=== PATIENT | female | born 1970 | race African-American/Black ===

== ENCOUNTER 2016-11-30 15:36 | Emergency (ER) | payer BC, OTHER ==
[2016-11-30] MEDS ORDERED: LORAZEPAM 2 MG/ML VIAL IV ONE (15:57)
[2016-11-30] MEDS ORDERED: NS 1,000 ML IV ONE ×2 (15:57→17:48)
[2016-11-30 16:01] VITALS: TEMP 98.6; BMI 43.1
[2016-11-30 16:05] LABS: MPV 9.6 fL (7.4-10.4)
--- NOTE | 2016-11-30 16:06 | EDPRACDOC ---
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 SHE SAW HER PCP TODAY AND TOLD HER THAT SHE HAD CP. SHE HAS ALSO NOTICED BLACK STOOL A FEW TIMES. PT SAID THAT SHE HAS NOT TAKEN HER MEDS TODAY. Chest Pain Location: Reports: No Pain Pain Radiation: Reports: None Symptoms Occur: Reports: Gradually Cardiac Risk Factors: Reports: Hypertension, Diabetes Cardiac History of: Reports: None PE Risk Factors: Reports: None Medications within 24 Hours: Reports: None Prehospital Care: Reports: None Pain Came On: Reports: Suddenly Pain Status: Present Now Pain Description: Reports: Sharp Pain Severity: Mild Pain Worsens With: Reports: Nothing Associated Signs and Symptoms: Reports: SOB ED Past Medical History - Patient Medical History Cardiac History: Reports: Hypertension Respiratory History: Reports: Asthma GI/ History: Reports: Gastroesophageal Reflux Musculoskeletal History: Reports: Arthritis Psychological History: Reports: Depression (LONG TIME AGO), Anxiety. Denies: Substance Use Disorder Systemic History: Reports: Cancer (cervical cancer), Anemia, Diabetes Additional Past Medical History: CHRONIC HEADACHES. DUB Surgical History: Reports: Hysterectomy, Other (Ectopic ) - Family Medical History Reports: Hypertension (mother and father), Diabetes (mother), Cancer ( grandparents BREAST CA, PROSTATE CA), Cardiac Disorders (mother and father). Denies: Stroke - Social Medical History Smoking Status: Never smoker Social History: Denies: Cocaine Use, Heroin Use, Marijuana Use, Substance Use Disorder ETOH: None Substance Abuse: None Lives In: Home EDM Review of Systems - Review of Systems ROS Negative Except as Marked: Yes All systems reviewed and were negative except as marked Cardiovascular: Chest Pain, Other (NEAR SYNCOPE) Gastrointestinal: Other (BLACK STOOL) - Physical Exam Constitutional: Alert (Awake), Distress (VERY ANXIOUS) Oriented to: Time, Person, Place Last recorded Vital Signs: Last Vital Signs Temp 98.6 F 11/30/16 15:40 Pulse 100 11/30/16 15:40 Resp 22 11/30/16 15:40 BP 190/95 H 11/30/16 15:40 Pulse Ox 100 11/30/16 15:40 Oxygen Pulse Oxygen Saturation 100 O2 Device Room Air Oxygen Flow Rate Fraction of Inspired Oxygen ( FIO2) - HEENT Head: Normal ( normocephalic) Eye Exam: Normal (PERRL, EOMI, Sclera white) Oropharynx: Normal (Pharynx:Moist without exudate,Gums-no swelling) ENT EAC: Normal TMJ: Normal Nose: No Symptoms Reported (septum midline) Neck: Normal (FROM, trachea at midline) - Respiratory/Cardiovascular Respiratory: Tachypnea Cardiovascular: Tachycardia - GI Auscultation: Normal (NABS) Palpation: Normal (Soft,No rebound or guarding, non distended) Tenderness: Non tender Uribe's Sign: Negative - Musculoskeletal Back: Normal (Non-Tender) Extremities: Normal (Normal tone, Pulses 2+ No cyanosis or edema, FROM) - Integumentary Skin: Normal, Warm, Dry Lymphatics: Normal (no adenopathy) - Neurologic Memory Impaired: Normal Motor Function: Normal (Normal tone, Pulses 2+ No cyanosis or edema, FROM) Cranial Nerve: Normal (CN II-X11 intact sensation, strength 5/5) Cerebellar: Normal Mood Description: Anxious Perception: Normal - Action ASA given in the ED: No Aspirin therapy held due to: Other-specify below* (asa and ntg given by pcp 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 No acute intra thoracic abnormalities. Fatty infiltration of liver. - Additional Information pt does not have rx for her meds - Departure Yes I personally saw and evaluated the patient. Disposition: Home Condition: Fair Final Diagnosis: Syncope, Atypical chest pain, Anxiety, Poorly controlled type 2 diabetes mellitus, Hypertension, Dehydration Instructions: Chest Pain (ED), Diabetes Mellitus Type 2 in Adults (ED), Chronic Hypertension (ED) Education/Counseling Given To: Patient, Family Member Education/Counseling Given Regarding: Diagnosis, Treatment, Follow Up Referrals: None,No Provider [Primary Care Provider] - One Week Barry Hoyos MD [Staff Physician] - One Week Kylie Casas MD [Ambulatory] - One Week Prescriptions: Lisinopril/Hydrochlorothiazide [Lisinopril-Hctz 10-12.5 mg Tab] 1 tab PO DAILY # 30 tab MetFORMIN (Immediate Release) [GLUCOPHAGE Immed Release] 500 mg PO BID #60 tablet Forms: Patient Discharge Instructions, ED Discharge Instructions Additional Instructions: TAKE YOUR MEDS DIRECTED. DIABETIC DIET. LOW SALT DIET.
--- NOTE | 2016-11-30 16:10 | DIRPT ---
CLINICAL DATA: Chest pain, headache, cough EXAM: PORTABLE CHEST 1 VIEW COMPARISON: 09/28/2016 FINDINGS: Cardiomegaly with vascular congestion. No confluent airspace opacities or effusions. No acute bony abnormality. IMPRESSION: Cardiomegaly with vascular congestion. Electronically Signed By: Juan Zaman M.D. On: 11/30/2016 16:08
[2016-11-30 16:16] LABS: BLOOD UREA NITROGEN 10 MG/DL (7-17); CALCIUM 9.6 MG/DL (8.4-10.2); CALCULATED OSMOLALITY 281 MOs/Kg (270-290); CHLORIDE 100 mEq/L (98-107); SODIUM LEVEL 136 mEq/L (137-146); TOTAL PROTEIN 8.6 G/DL (6.3-8.2)
[2016-11-30 16:21] LABS: PARTIAL THROMB. TIME 22.7 SEC (22-35)
[2016-11-30 16:24] LABS: GLUCOSE 452 MG/DL (70-99)
--- NOTE | 2016-11-30 16:27 | DIRPT ---
CLINICAL DATA: Syncope. Headache. EXAM: CT HEAD WITHOUT CONTRAST TECHNIQUE: Contiguous axial images were obtained from the base of the skull through the vertex without intravenous contrast. COMPARISON: 09/28/2016 FINDINGS: No acute intracranial abnormality. Specifically, no hemorrhage, hydrocephalus, mass lesion, acute infarction, or significant intracranial injury. No acute calvarial abnormality. Visualized paranasal sinuses and mastoids clear. Orbital soft tissues unremarkable. IMPRESSION: Normal noncontrast head CT. Electronically Signed By: Juan Zaman M.D. On: 11/30/2016 16:24
[2016-11-30 16:39] LABS: SEG NEUTROPHIL 49 % (45-76)
[2016-11-30 17:00] LABS: LEUKOCYTES/URINE NEG (NEGATIVE); NITRITE/URINE NEG (NEGATIVE); URINE OCCULT BLOOD NEG (NEG/TRACE); WBC/URINE 0-2 (0-5)
[2016-11-30] MEDS ORDERED: Pharmacy Review for Metformin - IV Contrast Given SCH (17:00)
[2016-11-30] MEDS ORDERED: DIPHENHYDRAMINE 50 MG/ML VIAL IV ONE (17:24)
--- NOTE | 2016-11-30 17:45 | DIRPT ---
CLINICAL DATA: Shortness of breath for 3 days, 2 episodes of syncope in 1 month, cervical cancer EXAM: CT ANGIOGRAPHY CHEST WITH CONTRAST TECHNIQUE: Multidetector CT imaging of the chest was performed using the standard protocol during bolus administration of intravenous contrast. Multiplanar CT image reconstructions and MIPs were obtained to evaluate the vascular anatomy. CONTRAST: 80 cc Isovue 370 IV. COMPARISON: 07/04/2015 FINDINGS: Degradation of image quality secondary to body habitus. Aorta normal caliber without aneurysm or dissection. Pulmonary arteries well opacified. Scattered artifacts traverse the pulmonary arteries in the lower lungs. No evidence of pulmonary embolism. No thoracic adenopathy. Fatty infiltration of liver. Visualized upper abdomen otherwise unremarkable. Lungs clear. No infiltrate, pleural effusion, pneumothorax, or definite mass/nodule. Bones unremarkable. Review of the MIP images confirms the above findings. IMPRESSION: No evidence of pulmonary embolism. No acute intra thoracic abnormalities. Fatty infiltration of liver. Electronically Signed By: Nael Myles M.D. On: 11/30/2016 17:42
[2016-11-30] MEDS ORDERED: REGULAR INSULIN 100 UNITS/ML - 3 ML VIAL IV ONE (17:56)
[2016-11-30] MEDS ORDERED: LABETALOL 20 MG/4 ML SYRINGE IV ONE (17:56)
[2016-11-30] MEDS ORDERED: ONDANSETRON HCL 4 MG/2 ML VIAL IV ONE (18:01)
[2016-11-30] MEDS ORDERED: MORPHINE 4 MG/ML INJECTION IV ONE ×2 (18:01→19:02)
[2016-11-30] MEDS: REGULAR INSULIN 100 UNITS/ML - 3 ML VIAL IV ONE ×2 (18:03→19:39)
[2016-11-30] MEDS ORDERED: OXYCODONE HCL 5 MG TABLET PO ONE (19:24)
[2016-11-30 19:52] VITALS: BP 172/90; PULSE 96
== END 2016-11-30 19:52 | disposition home or self-care (01) ==
LOC: ED 15:36
DX: R55 Syncope and collapse (principal); R07.89 Other chest pain; F41.9 Anxiety disorder, unspecified; I10 Essential (primary) hypertension; E11.65 Type 2 diabetes mellitus with hyperglycemia; E86.0 Dehydration; Z79.899 Other long term (current) drug therapy; R19.5 Other fecal abnormalities
CPT/HCPCS: 36415; 70450; 71010; 71275; 80053; 81001; 82270; 82962; 83036; 84443; 84484; 85007; 85027; 85379; 85610; 85730; 93005; 96361; 96374; 96375; 99285; A9698; J1200; J2060; J2270; J2405; J3490